=== PATIENT | female | born 1970 | race Caucasian/White ===

== ENCOUNTER 2017-02-03 02:24 | Inpatient (IN) ==
[2017-01-28 09:51] LABS: MANUAL DIFF NEEDED? NO; URINE MICRO REVIEW NEEDED? NO; URINE SOURCE VOIDED
[2017-01-28 10:11] LABS: BASO% 0.2 % (0.0-0.8); EOS# 0.24 X1000 (0.0-0.7); HEMATOCRIT 38.2 % (37.0-47.0); HEMOGLOBIN 12.9 g/dL (12.0-16.0); IMM GRAN# 0.06 X1000 (0.0-0.04); IMM GRAN% 0.5 % (0.0-0.5); LYMPH# 1.74 X1000 (1.2-3.4); LYMPH% 14.7 % (20.5-51.1); MCH 32.7 PG (27-31); MCHC 33.8 g/dL (33-37); MONO% 6.8 % (1.7-9.3); MPV 9.8 FL (7.4-10.4); NEUT% 75.8 % (42.2-75.2); PLT 351 X1000 (130-400); RBC 3.94 XMIL (4.2-5.4)
[2017-01-28 10:13] LABS: BILIRUBIN URINE NEGATIVE (NEGATIVE); BLOOD URINE NEGATIVE (NEGATIVE); COLOR YELLOW; GLUCOSE URINE NEGATIVE (NEGATIVE); LEUKOCYTES URINE TRACE (NEGATIVE); NITRITE URINE NEGATIVE (NEGATIVE); PH URINE 6.5; PROTEIN URINE NEGATIVE (NEGATIVE); SP GRAVITY URINE 1.005; TURBIDITY URINE HAZY (CLEAR); UROBILINOGEN URINE NORMAL (NORMAL)
[2017-01-28 10:15] LABS: UR EPITHELIAL CELLS >10 /HPF (<10); URINE BACTERIA 4+ /HPF; URINE RBC <10 /HPF (<10); URINE WBC <10 /HPF (<10)
[2017-01-28 10:55] LABS: AGAP 12; BUN 6 mg/dL (8-22); CALCIUM 9.1 mg/dL (8.8-10.2); CHLORIDE 104 mmol/L (98-107); COSMO 279; SODIUM 142 mmol/L (136-145); TCO2 26 mmol/L (25-35)
--- NOTE | 2017-01-28 12:55 | EKG Report ---
Test Performed on : 01/28/2017 09:23:24 AM Test Reason : pat Blood Pressure : / mmHG Vent. Rate : 086 BPM Atrial Rate : 086 BPM P-R Int : 142 ms QRS Dur : 078 ms QT Int : 384 ms P-R-T Axes : 000 072 071 degrees QTc Int : 459 ms Normal sinus rhythm. Normal ECG When compared with ECG of 21-NOV-2015 15:32, Borderline criteria for Inferior infarct are no longer present Non-specific change in ST segment in Inferior leads T wave inversion no longer evident in Inferior leads Confirmed by Tanner Jones MD ([id number]) on 01/28/2017 3:56:56 PM
--- NOTE | 2017-02-02 15:56 | HISTORY AND PHYSICAL ---
HISTORY OF PRESENT ILLNESS: Anne is a 46-year-old white female, para 2, with a history of 2 C- sections. She has also had breast augmentation and abdominoplasty. Also appendectomy and tonsillectomy and adenoidectomy. Being admitted this time for a total abdominal hysterectomy with right salpingo-oophorectomy and left salpingectomy. Anne has been having a problem with her periods for number of years. She presented to the office as a return new patient back in October and indicated that due to the fact that when she is not on control pills that she has so much trouble with her periods that she would like to move in the direction of having a hysterectomy. I also indicated to her at that time with her being a smoker that she should no longer be on control pills anyway. She relates that the periods are mostly just in the form of menorrhagia, where she has had some episodes of soiling her clothes. Also dysmenorrhea and some dyspareunia. She relates that she does want to try to preserve her left ovary if it appears normal and I indicated to her that would have to be a decision at the time of surgery as to the condition of that ovary she does tend to have more pain and discomfort on the right side so therefore, the right ovary will be removed. We discussed the nature of the procedure, the risk involved, the risk of anesthesia, other issues including, but not limited to, potential injury to surrounding structures, infection, hemorrhage, and even . We talked about the usual length of hospitalization, the recuperation time at home, and the restrictions therein. Overall, she felt well informed and felt that all of her questions had been answered. ALLERGIES: She has no known allergies. FAMILY HISTORY: Significant for diabetes in her father. Heart disease in both parents. Breast cancer with her mother. SOCIAL HISTORY: Other than the above, basically noncontributory. REVIEW OF SYSTEMS: Other than the above, basically noncontributory. PHYSICAL EXAMINATION: GENERAL: Exam is that of a well-developed, well-nourished, 46-year-old white female, in no acute distress. VITAL SIGNS: Stable and noted on the chart. HEENT: Unremarkable. NECK: Without nodes or thyromegaly. HEART: Regular without murmurs, gallops, or rubs. LUNGS: Clear. BREASTS: Without mass or tenderness. ABDOMEN: Soft, nontender. No masses. PELVIC: Normal external female genitalia. Vagina is clean. Cervix no lesions. Uterus feels normal size. There is some mobility. No adnexal masses were felt. Rectovaginal exam was normal. EXTREMITIES: Without tenderness or edema. NEUROLOGICAL: Grossly normal. ASSESSMENT: Abnormal uterine bleeding mostly in the form of menorrhagia, dyspareunia, and dysmenorrhea. PLAN: For total abdominal hysterectomy with right salpingo-oophorectomy and left salpingectomy. cc: Curt Emery MD
[2017-02-03] MEDS ORDERED: PEPCID ONE (05:36)
[2017-02-03] MEDS ORDERED: REGLAN ONE (05:37)
[2017-02-03] MEDS ORDERED: LR 1,000 ML ONE (05:37)
[2017-02-03] MEDS ORDERED: KEFZOL 1 GM/D5W 1 GM/50 ML IVPB ONE (05:37)
[2017-02-03] MEDS ORDERED: TRANSDERM-SCOP ONE (06:40)
[2017-02-03] MEDS ORDERED: EXPAREL 1.3% ONE (06:56)
[2017-02-03] MEDS ORDERED: MARCAINE 0.25% PF ONE (06:56)
[2017-02-03] MEDS ORDERED: SODIUM CHLORIDE 0.9% 10 ML ONE ×2 (06:56→06:57)
[2017-02-03 07:48] LABS: URINE MICRO REVIEW NEEDED? NO; URINE SOURCE CATH
[2017-02-03 07:54] LABS: BILIRUBIN URINE NEGATIVE (NEGATIVE); BLOOD URINE NEGATIVE (NEGATIVE); COLOR YELLOW; GLUCOSE URINE NEGATIVE (NEGATIVE); LEUKOCYTES URINE NEGATIVE (NEGATIVE); NITRITE URINE NEGATIVE (NEGATIVE); PH URINE 5.5; PROTEIN URINE NEGATIVE (NEGATIVE); SP GRAVITY URINE 1.007; TURBIDITY URINE CLEAR (CLEAR); UROBILINOGEN URINE NORMAL (NORMAL)
[2017-02-03 07:56] LABS: UR EPITHELIAL CELLS <10 /HPF (<10); URINE BACTERIA 1+ /HPF; URINE RBC <10 /HPF (<10); URINE WBC <10 /HPF (<10)
[2017-02-03] MEDS: DILAUDID ONE ×4 (08:24→09:01)
[2017-02-03] MEDS ORDERED: FENTANYL ONE (08:28)
[2017-02-03] MEDS ORDERED: DIPRIVAN 1% ONE (08:29)
[2017-02-03] MEDS ORDERED: OFIRMEV 1000 MG/ISOTONIC SOLN 1,000 MG/100 ML BOTTLE ONE (08:43)
[2017-02-03] MEDS ORDERED: DEMEROL PCA VIAL ONE (08:43)
[2017-02-03] MEDS ORDERED: ROBINUL ONE (08:44)
[2017-02-03] MEDS ORDERED: NEOSTIGMINE ONE (08:44)
[2017-02-03] MEDS ORDERED: XYLOCAINE-MPF 2% ONE (08:44)
[2017-02-03] MEDS ORDERED: ZOFRAN ONE (08:44)
[2017-02-03] MEDS ORDERED: ZEMURON ONE (08:44)
[2017-02-03] MEDS ORDERED: QUELICIN (DOSE) ONE (08:44)
[2017-02-03] MEDS ORDERED: LR 2,000 ML ONE (08:44)
[2017-02-03] MEDS ORDERED: DECADRON ONE (08:44)
[2017-02-03] MEDS: NORVASC PO SCH ×2 (10:21→21:08)
[2017-02-03] MEDS ORDERED: ZOFRAN IV PRN (10:32)
[2017-02-03] MEDS ORDERED: NARCAN IV PRN (10:32)
[2017-02-03] MEDS ORDERED: SODIUM CHLORIDE 0.9% INJ PRN (10:32)
[2017-02-03] MEDS ORDERED: PHENERGAN IV PRN (10:32)
[2017-02-03] MEDS ORDERED: DEMEROL PCA VIAL IV PRN (10:32)
[2017-02-03] MEDS ORDERED: BENADRYL IV PRN (10:32)
[2017-02-03] MEDS: ZYRTEC PO SCH (10:48)
[2017-02-03] MEDS: PERIDEX MT SCH ×2 (10:53→21:07)
[2017-02-03] MEDS: LR 1,000 ML IV SCH ×4 (10:54→21:08)
--- NOTE | 2017-02-03 11:07 | OPERATIVE NOTE ---
PROCEDURE DATE: 02/03/2017 SURGEON: Dr. Emery. DIETETIC ASSISTANT: Dr. Ramirez. ANESTHESIA: General, Dr. Askew, who also did the tap block. PREOPERATIVE DIAGNOSES: 1. Abnormal uterine bleeding, mostly in the form of menorrhagia, dysmenorrhea, and dyspareunia. 2. Pelvic pain on the right side. POSTOPERATIVE FINDINGS: Grossly normal uterus, tubes, and ovaries. Some adhesions of the bladder reflected peritoneum to the anterior surface of the cervix secondary to two C-sections. PROCEDURES PERFORMED: 1. Total abdominal hysterectomy. 2. Right salpingo-oophorectomy. 3. Left salpingectomy. OPERATIVE NOTE: Anne was brought to the operating room, and after being placed upon the operating table and under general anesthesia, she was prepped and draped in the usual sterile supine position with a Parks catheter in place. Prior to proceeding, Dr. Askew did the tap block, and then we proceeded on with the proper abdominal prep and draping. We entered the abdomen through a Pfannenstiel incision in the customary manner, and once the peritoneum was opened and extended, we inserted the [place] retractor as well as the bladder blade, and then using 3 moist lap packs, we were able to displace the bowel superiorly and out of the field of the surgery, along with self-retaining upper blade. We then grasped the uterus with a Doretha clamp. A small fibroid was noted. The tubes and ovaries appeared normal. There was no evidence of any significant pelvic adhesive disease, other then just some typical adhesions of the reflected bladder peritoneum to the lower part of the cervix from her C-sections. We began on the right side by elevating the tube and ovary, isolating the infundibulopelvic ligament, and using the LigaSure, we were able to clamp, cauterize, and transect in a stepwise manner across the infundibulopelvic ligament and back up toward the uterus to completely free the right adnexa, all the while, taking care to assure being clear and away from the ureter on that side. Once we had freed the right tube and ovary, we then extirpated it with the LigaSure, passing the specimen off the table. We inspected the left ovary, which was found to be small, but normal, and due to the fact that Anne wanted to preserve that ovary, we did go ahead and extirpate the left fallopian tube, again with the LigaSure and also in a stepwise manner, worked our way across the mesosalpinx, up to the cornua insertion, and then removed the tube itself. Then, still using the LigaSure, we angled across the attachments of the round ligament to the uterus, and on down toward the reflection of the peritoneum, just shy of that. We then stopped with the LigaSure, and created our bladder flap, mostly with sharp dissection to release the adhesions and to dissect down to the reflected peritoneum, at which point, we could continue as we worked our way along, making sure that the bladder was down and away from the field of surgery. At this point, we then placed a Jackie clamp on either side so that when transected and suture ligated using the 0 Polysorb, we ligated the uterine vessels. This was done in a 2-step manner to doubly secure those vessels on each side. Then, in a stepwise manner, we clamped, transected, and suture ligated the remaining paracervical tissue, all the way down to and ultimately including the uterosacral ligament on each side, and once we reached that point, we tagged that for identification purposes, and then with the last bite on each side, we were able to enter the upper angle of the vagina, and then using the Ursula scissors, the remaining vaginal attachments to the cervix were circumscribed away, and the specimen was then inspected and passed off the table intact. We then placed our customary angled sutures to close the angle with a [id number] style stitch, also being attached to the uterosacral for support purposes, and then about 3 more [id number] style stitches completed the closure of the vaginal cuff, and provided hemostasis there. We did have a small amount of oozing anteriorly, which we were able to carefully control with the electrocautery, and after that, hemostasis was excellent. We then cut all the excess suture material, irrigated the pelvic cavity with sterile water twice, and inspected again, and found hemostasis to be good. We inspected all of our pedicles from one side to the other, and found no issues, and at that point, we removed the retractor. All of its parts were accounted for, as well as the 3 moist lap packs, and then began closure of the abdominal incision, first with the peritoneum. We placed a running stitch of #2-0 Polysorb, followed by closure of the fascia after first inspecting the subfascial plane. We ran a running stitch of #1 Polysorb from the left angle over to the midpoint, and then secondly from the right-hand angle over to the midpoint. The subcutaneous layer was controlled hemostatically with the electrocautery. The skin edges were then reapproximated with the surgical stapler, and the incision site was cleaned, covered with a sterile dry gauze dressing, and having tolerated the procedure well, Anne was then awakened and transferred to the stretcher and to the recovery room in stable condition. It should be noted that all of our needle, sponge, and instrument counts were correct at the end the case. Also, I did speak with her family member outside of the surgery waiting area to let her know that the procedure had gone well, that we encountered no unplanned events, and that we were able to accomplish everything that we had hoped to be able to do with the surgery. She was pleased with the report, and had no further questions. It also should be noted that our estimated blood loss was about 50 mL, and that urine output was 350 mL of clear urine. cc: MD Dr. Zuhair Joseph
--- NOTE | 2017-02-03 14:00 | PROGRESS NOTE ---
DATE: 02/03/2017 SUBJECTIVE: Anne is now close to 6 hours postop status post MOY with RSO and left salpingectomy. She is stable. Vital signs have been stable. She remains afebrile. She has had adequate pain relief with the STEVEDORE DOCK and urine output is abundant, clear and she voices at this point really no complaints. Abdomen is soft. Dressing is dry. We went over today the plans for the remainder of today and tonight, and what we will try to accomplish tomorrow morning. Overall, she seems very pleased with her care to this point and had no questions or complaints. cc: Curt Emery MD
[2017-02-03] MEDS: TYLENOL PO SCH ×2 (15:37→21:07)
[2017-02-03] MEDS ORDERED: SEROQUEL PO SCH (21:00)
[2017-02-04] MEDS: LR 1,000 ML IV SCH ×3 (01:31→05:11)
[2017-02-04] MEDS: TYLENOL PO SCH (04:10)
[2017-02-04] MEDS ORDERED: SALINE LOCK IV FLUID XX ONE (06:32)
[2017-02-04 06:48] LABS: HEMATOCRIT 31.8 % (37.0-47.0); HEMOGLOBIN 10.8 g/dL (12.0-16.0); MCH 32.7 PG (27-31); MCV 96.4 FL (81-99); MPV 9.9 FL (7.4-10.4); RBC 3.3 XMIL (4.2-5.4)
[2017-02-04] MEDS ORDERED: PROTONIX PO SCH (07:00)
[2017-02-04] MEDS ORDERED: PHENERGAN PO PRN (08:19)
[2017-02-04] MEDS: NORVASC PO SCH (08:47)
[2017-02-04] MEDS: ZYRTEC PO SCH (08:47)
[2017-02-04] MEDS: PERIDEX MT SCH (08:48)
[2017-02-04] MEDS: DEMEROL PO PRN ×2 (08:53→12:43)
--- NOTE | 2017-02-04 09:13 | PROGRESS NOTE ---
DATE: 02/04/2017 SUBJECTIVE: This is postop day #1 for Anne; she is stable status post MOY, RSO, with left salpingectomy. She had a reasonably restful night. Her ASSOCIATE CURATOR pump provided adequate pain relief. She has been able to concern both solid and liquids without any difficulty. Her IV has been converted to saline lock, and the catheter has been removed. She has voided once so far without any difficulty since the catheter was taken out. She will begin to loosen up the tape around the incision this morning; it appears to be clean and dry. We will have her up moving around some to see how the morning goes. Abdomen is soft. Extremities without tenderness or edema. White count was 15.9, hematocrit 31.8. We will evaluate closer to lunchtime today to see whether she will be a candidate to be discharged to home. So far, she is stable postop and will continue as ordered. cc: Curt Emery MD
[2017-02-04 11:56] VITALS: BP 127/79
--- NOTE | 2017-02-04 13:53 | PROGRESS NOTE ---
DATE: 02/04/2017 Anne is now almost a day and a half postop status post total abdominal hysterectomy, right salpingo-oophorectomy, and left salpingectomy. She is stable postop. She has remained afebrile with stable vital signs. She has been able to increase her diet and her activity. Voiding spontaneously since the catheter has been removed and seemingly having no problems. She feels that she is ready to be discharged to home to the care of her family. The dressing was removed and it seems clean and dry. Instructions have been given in regards to the incision care. We also instructed her regarding routine activity, sexual activity, and also plans were made for her to return to the private office on Thursday of the following week for postop visit, staple removal. She will have a prescription for Demerol 50 mg and also Phenergan 25 mg, 36 of each and she will take 1/2 to 1 tab every 4-6 hours as needed for pain. She will be discharged to home to the care of her family. She is stable postop and she was instructed to call if she has any questions or concerns along the way. cc: Curt Emery MD
== END 2017-02-04 14:08 | disposition home or self-care (01) ==
LOC: SURHOLD 02:24 → 4N 08:40
PROVIDERS: ADMIT Obstetrics & Gynecology; ATTEND Obstetrics & Gynecology